=== PATIENT | female | born 1945 | race Asian ===

== ENCOUNTER 2018-09-01 06:22 | Day surgery (SDC) | payer MEDICARE, MEDICAID ==
[~2018-09-01] VITALS: Ht 162.6 cm; Wt 64.7 kg
[~2018-09-01 06:22] MED LIST: AMLO10TA8 PO; DIAZ5TAB PO; LOSA100T14 PO
[2018-09-01] MEDS ORDERED: BUPIVACAINE/PF 0.5% ONE (06:55)
[2018-09-01] MEDS ORDERED: EPINEPHRINE 1 MG/ML, 1ML ONE (06:55)
[2018-09-01] MEDS ORDERED: LACTATED RINGERS 1,000 ML IV SCH (07:08)
[2018-09-01] MEDS ORDERED: HYDR-3240 PO (07:11)
[2018-09-01] MEDS ORDERED: ACET-1600 PO (07:11)
[2018-09-01] MEDS ORDERED: CEPH-368 PO (07:11)
[2018-09-01 07:15] VITALS: BP 166/69
[2018-09-01] MEDS ORDERED: FENTANYL PF 100 MCG/2ML ONE ×3 (07:59→09:22)
[2018-09-01] MEDS ORDERED: ONDANSETRON 2MG/ML, 2ML ONE (08:10)
[2018-09-01] MEDS ORDERED: PROPOFOL 10 MG/ML, 20ML ONE (08:10)
[2018-09-01] MEDS ORDERED: CEFAZOLIN 1,000 MG ONE (08:10)
[2018-09-01] MEDS ORDERED: SUCCINYLCHOLINE 20 MG/ML, 10ML ONE (08:10)
[2018-09-01] MEDS ORDERED: DEXAMETHASONE 4 MG/ML, 1ML ONE (08:10)
[2018-09-01] MEDS ORDERED: hydrALAzine 20 MG/ML, 1ML IV PRN (08:30)
[2018-09-01] MEDS ORDERED: MEPERIDINE/PF 25MG/0.5ML IVPush PRN (08:30)
[2018-09-01] MEDS ORDERED: ALBUTEROL SULFATE 2.5 MG/3 ML NPPB PRN (08:30)
[2018-09-01] MEDS ORDERED: KETOROLAC 30 MG/1 ML IV PRN (08:30)
[2018-09-01] MEDS ORDERED: PROMETHAZINE 25 MG/ML, 1ML IV PRN (08:30)
[2018-09-01] MEDS ORDERED: LABETALOL 5MG/ML, 20ML IV PRN (08:30)
[2018-09-01] MEDS ORDERED: ONDANSETRON 2MG/ML, 2ML IVPush PRN (08:30)
[2018-09-01] MEDS ORDERED: HYDROmorphone 1 MG/ML, 1ML INJ IV PRN (08:30)
[2018-09-01] MEDS ORDERED: OXYcodone 5 MG/5 ML ORAL.SOL UDC PO PRN (08:30)
[2018-09-01] MEDS ORDERED: METOCLOPRAMIDE 5 MG/ML, 2ML IV PRN (08:30)
[2018-09-01] MEDS ORDERED: OXYcodone 5 MG/5 ML ORAL.SOL UDC ONE (08:49)
[2018-09-01] MEDS: FENTANYL PF 100 MCG/2ML IV PRN ×4 (08:51→09:24)
[2018-09-01] MEDS ORDERED: KETOROLAC 30 MG/1 ML ONE (08:55)
== END 2018-09-01 13:20 | disposition home or self-care (01) ==
LOC: OUT 06:22
PROVIDERS: ATTEND Surgery
DX: L76.82 Other postprocedural complications of skin and subcutaneous tissue (principal); I10 Essential (primary) hypertension; F17.210 Nicotine dependence, cigarettes, uncomplicated; Z79.899 Other long term (current) drug therapy; Z85.3 Personal history of malignant neoplasm of breast; Z90.12 Acquired absence of left breast and nipple; Z98.890 Other specified postprocedural states; Z83.3 Family history of diabetes mellitus; Z82.49 Family history of ischemic heart disease and other diseases of the circulatory system
CPT/HCPCS: 10060; 87070; 87075; 87116; 87205; 87206; C1729; J0171; J0330; J0690; J1100; J1885; J2405; J2704; J3010; J7120

== ENCOUNTER 2018-09-10 10:54 | Day surgery (SDC) | payer MEDICARE, MEDICAID ==
[~2018-09-10] VITALS: Ht 162.6 cm; Wt 63.0 kg
[~2018-09-10 10:54] MED LIST changes: +ACET-1600 PO; +CEPH-368 PO; +HYDR-3240 PO
[2018-09-10] MEDS ORDERED: LACTATED RINGERS 1,000 ML IV SCH (11:22)
[2018-09-10 11:23] VITALS: BP 150/84
[2018-09-10] MEDS ORDERED: EPINEPHRINE 1 MG/ML, 1ML ONE (12:55)
[2018-09-10] MEDS ORDERED: BUPIVACAINE/PF 0.5% ONE ×2 (12:55)
[2018-09-10] MEDS ORDERED: CEFAZOLIN 1,000 MG ONE (13:35)
[2018-09-10] MEDS ORDERED: PROPOFOL 10 MG/ML, 20ML ONE (13:35)
[2018-09-10] MEDS ORDERED: ONDANSETRON 2MG/ML, 2ML ONE (13:35)
[2018-09-10] MEDS ORDERED: FENTANYL PF 100 MCG/2ML ONE (13:35)
[2018-09-10] MEDS ORDERED: DEXAMETHASONE 4 MG/ML, 1ML ONE (13:35)
[2018-09-10] MEDS ORDERED: ONDANSETRON 2MG/ML, 2ML IV PRN (14:00)
[2018-09-10] MEDS ORDERED: OXYcodone 5 MG/5 ML ORAL.SOL UDC PO PRN (14:00)
[2018-09-10] MEDS ORDERED: PROMETHAZINE 25 MG/ML, 1ML IV PRN (14:00)
[2018-09-10] MEDS ORDERED: LABETALOL 5MG/ML, 20ML IV PRN (14:00)
[2018-09-10] MEDS ORDERED: HYDROmorphone 2 MG/ML, 1ML IVPush PRN (14:00)
[2018-09-10] MEDS ORDERED: MEPERIDINE/PF 25MG/0.5ML IVPush PRN (14:00)
[2018-09-10] MEDS ORDERED: hydrALAzine 20 MG/ML, 1ML IV PRN (14:00)
[2018-09-10] MEDS ORDERED: ACETAMINOPHEN 325 MG TABLET PO PRN (14:00)
[2018-09-10] MEDS: FENTANYL PF 100 MCG/2ML IV PRN ×3 (14:25→14:57)
== END 2018-09-10 17:10 | disposition home or self-care (01) ==
LOC: OUT 10:54
PROVIDERS: ATTEND Surgery
DX: T85.698A Other mechanical complication of other specified internal prosthetic devices, implants and grafts, initial encounter (principal); T81.41XA Infection following a procedure, superficial incisional surgical site, initial encounter; L02.412 Cutaneous abscess of left axilla; C50.412 Malignant neoplasm of upper-outer quadrant of left female breast; Z17.0 Estrogen receptor positive status [ER+]; I10 Essential (primary) hypertension; F17.210 Nicotine dependence, cigarettes, uncomplicated; Z79.899 Other long term (current) drug therapy; Z78.0 Asymptomatic menopausal state; Z90.12 Acquired absence of left breast and nipple; Z98.890 Other specified postprocedural states; Z82.49 Family history of ischemic heart disease and other diseases of the circulatory system; Y83.8 Other surgical procedures as the cause of abnormal reaction of the patient, or of later complication, without mention of misadventure at the time of the procedure
CPT/HCPCS: 10180; 87070; 87075; 87205; J0171; J0690; J1100; J2405; J2550; J2704; J3010; J7120